=== PATIENT | female | born 1955 ===

== ENCOUNTER 2016-12-17 19:53 | Inpatient (IN) | payer OTHER, MEDICAID ==
[2016-12-17 19:57] VITALS: BMI 32.4
[2016-12-17] MEDS ORDERED: Albuterol 0.083% Inhal Sol (2.5 mg/3 mL) UD INH PRN (22:03)
[2016-12-17] MEDS: Fluticasone-Salmeterol 250-50mcg Diskus INH SCH (22:32)
[2016-12-18] MEDS: Insulin Lispro (humaLOG) 100 Units/ml Inj SC SCH ×4 (07:01→21:41)
[2016-12-18] MEDS: Pantoprazole 40 mg EC Tab PO SCH (10:01)
[2016-12-18] MEDS: Fluticasone-Salmeterol 250-50mcg Diskus INH SCH (10:03)
[2016-12-18 16:23] VITALS: RESP 20
--- NOTE | 2016-12-18 21:28 | HP ---
The patient is a 61-year-old female with history of diabetes, hypertension and also cellulitis to the right leg. The patient came to the TCU at [facility] for IV antibiotic therapy. The javon cancino has chronic recurring DVT. ALLERGIES: THE PATIENT HAS AN ALLERGY TO CLINDAMYCIN, LATEX, RUBBER, PENICILLIN AND ALSO VANCOMYCIN. SOCIAL HISTORY: The patient is , has children, lives with her . No smoking or alcohol abuse. FAMILY HISTORY: No inherited disease. REVIEW OF SYSTEM: RESPIRATORY: No shortness of breath. CARDIOVASCULAR: The patient denied any chest pain. GASTROINTESTINAL: The patient has been having multiple bowel movement, but no diarrhea. GENITOURINARY: No dysuria. NEUROLOGIC: The patient complaining of pain to the right leg. PHYSICAL EXAMINATION: GENERAL: The patient is alert and awake and oriented x 3. Complaining of some pain to the right leg sometimes. Blood pressure is 126/83, pulse is 86-110, respirations 20, temperature 98.1. NECK: Supple, no JVD. LUNGS: Clear. HEART: Regular rate and rhythm. ABDOMEN: Soft, obese, nontender. EXTREMITIES: There is some redness to the right leg and there is some mild tenderness and also it is warm. LABORATORY DATA: The patient has some tests done today. The PT is 21.3, INR is 2.5. IMPRESSION: Cellulitis of the right lower extremity, diabetes, hypertension, chronic deep venous thr ombosis. The patient did consult with Dr. Nguyen, ID. Cedric Mistry MD cc: [id number] TT: 12/18/2016 21:27:19 vt
[2016-12-19] MEDS: Insulin Lispro (humaLOG) 100 Units/ml Inj SC SCH ×4 (06:42→22:04)
[2016-12-19] MEDS: Pantoprazole 40 mg EC Tab PO SCH (09:25)
[2016-12-19] MEDS: Fluticasone-Salmeterol 250-50mcg Diskus INH SCH (09:25)
--- NOTE | 2016-12-19 12:58 | CP.PCM.CON ---
History of Present Illness - History of Present Illness History of Present Illness: 61 yo female with Hx HTN DM OA COPD DVT right leg admitted to TCU from for rx of cellulitis RLE has hx of multiple severe allergies including PCN, CLINDA, Vanco FH + DM SH- denies IVDA ROS as noted Review of Systems - Constitutional Constitutional: absent: Anorexia, Chills, Fever, Malaise - EENT Eyes: absent: As Per HPI, Blind Spots, Blurred Vision, Change in Vision, Decreased Night Vision, Diplopia, Discharge, Dry Eye, Exophthalmos, Floaters, Irritation, Itchy Eyes, Loss of Peripheral Vision, Pain, Photophobia, Requires Corrective Lenses, Sees Flashes, Spots in Vision, Tunnel Vision, Other Visual Disturbances, Loss of Vision, Other Ears: absent: As Per HPI, Decreased Hearing, Ear Discharge, Ear Pain, Tinnitus, Abnormal Hearing, Disequilibrium, Dizziness, Other Nose/Mouth/Throat: absent: As Per HPI, Epistaxis, Nasal Congestion, Nasal Discharge, Nasal Obstruction, Nasal Trauma, Nose Pain, Post Nasal Drip, Sinus Pain, Sinus Pressure, Bleeding Gums, Change in Voice, Dental Pain, Dry Mouth, Dysphagia, Halitosis, Hoarsness, Lip Swelling, Mouth Lesions, Mouth Pain, Odynophagia, Sore Throat, Throat Swelling, Tongue Swelling, Facial Pain, Neck Pain, Neck Mass, Other - Breasts Breasts: absent: As Per HPI, Change in Shape, Mass, Pain, Nipple Discharge, Nipple Inversion, Skin Changes, Swelling, Other - Cardiovascular Cardiovascular: absent: As Per HPI, Acrocyanosis, Chest Pain, Chest Pain at Rest , Chest Pain with Activity, Claudication, Diaphoresis, Dyspnea, Dyspnea on Exertion, Edema, Irregular Heart Rhythm, Pain Radiating to Arm/Neck/Jaw, Leg Edema, Leg Ulcers, Lightheadedness, Orthopnea, Palpitations, Paroxysmal Nocturnal Dyspnea, Pedal Edema, Radiating Pain, Rapid Heart Rate, Slow Heart Rate, Syncope, Other - Respiratory Respiratory: absent: As Per HPI, Cough, Dyspnea, Hemoptysis, Dyspnea on Exertion , Wheezing, Snoring, Stridor, Pain on Inspiration, Chest Congestion, Excessive Mucous Production, Change in Mucous Color, Pain with Coughing, Other - Gastrointestinal Gastrointestinal: absent: As Per HPI, Abdominal Pain, Belching, Bloating, Change in Bowel Habits, Change in Stool Character, Coffee Ground Emesis, Constipation, Cramping, Diarrhea, Dyspepsia, Dysphagia, Early Satiety, Excessive Flatus, Fecal Incontinence, Heartburn, Hematemesis, Hematochezia, Loose Stools, Melena, Nausea, Odynophagia, Temesmus, Vomiting, Other - Genitourinary Genitourinary: absent: As Per HPI, Change in Urinary Stream, Difficulty Urinating, Dysuria, Flank Pain, Hematuria, Pyuria, Nocturia, Urinary Incontinence, Urinary Frequency, Urinary Hesitance, Urinary Urgency, Voiding Freq/Small Amts, Freq UTI, Hx Renal/Bladder Calculi, Hx /Renal Surgery, Bladder Distension, Other - Reproductive: Female Reproductive:Female: absent: As Per HPI, Amenorrhea, Amenorrhea/ Control, Currently Menstual, Cycle <21 Days, Cycle >35 Days, Cycle Variable, Menses 1-7 Days, Menses >/= 8 Days, Menses Variable, Cycle > 4 Weeks Between, No Menses for 6 Months, Heavy Menses, Light Menses, Normal Menses, Spotting Between Cycles , S/P Hysterectomy, Menopausal, Post Menopausal, Premenarche, Abnormal Vaginal Bleeding, Dysmenorrhea, Dyspareunia, Genital Lesions, Genital Pruritis, Pelvic Pain, Prolapse Symptoms, Sexual Dysfunction, Vaginal Discharge, Vaginal Dryness , Vaginal Odor, Vaginal Pruritis, Other - Menstruation Menstruation: absent: As Per HPI, Amenorrhea, Amenorrhea/ Control, Currently Menstual, Cycle <21 Days, Cycle >35 Days, Cycle Variable, Menses 1-7 Days, Menses >/= 8 Days, Menses Variable, Cycle > 4 Weeks Between, No Menses for 6 Months, Heavy Menses, Light Menses, Normal Menses, Spotting Between Cycles , S/P Hysterectomy, Menopausal, Post Menopausal, Premenarche, Abnormal Vaginal Bleeding, Dysmenorrhea, Other - Musculoskeletal Musculoskeletal: As Per HPI, Arthralgias - Integumentary Integumentary: As Per HPI, Skin Pain, Wounds - Neurological Neurological: Paresthesias - Psychiatric Psychiatric: absent: As Per HPI, Abnormal Sleep Pattern, Anhedonia, Anxiety, Auditory Hallucinations, Behavioral Changes, Change in Appetite, Change in Libido, Confusion, Depression, Difficulty Concentrating, Hallucinations, Homicidal Ideation, Hopelessness, Irritability, Memory Loss, Mood Swings, Panic Attacks, Paranoia, Suicidal Ideation, Visual Hallucinations, Tactile Hallucinations, Other - Endocrine Endocrine: absent: As Per HPI, Change in Body Appearance, Change in Libido, Cold Intolorance, Deepening of Voice, Excessive Sweating, Fatigue, Flushing, Heat Intolorance, Increase in Ring/Shoe/Hat Size, Palpitations, Polydipsia, Polyphagia, Polyuria, Other - Hematologic/Lymphatic Hematologic: absent: As Per HPI, Easy Bleeding, Easy Bruising, Lymphadenopathy, Other Past Patient History - Infectious Disease Hx of Infectious Diseases: MRSA - Past Medical History & Family History Past Medical History?: Yes - Past Social History Smoking Status: Never Smoked - CARDIAC Hx Hypercholesterolemia: Yes Hx Hypertension: Yes - PULMONARY Hx Chronic Obstructive Pulmonary Disease (COPD): Yes - NEUROLOGICAL Hx Neurological Disorder: No - HEENT Hx HEENT Problems: No - RENAL Hx Chronic Kidney Disease: No - ENDOCRINE/METABOLIC Hx Diabetes Mellitus Type 2: Yes - HEMATOLOGICAL/ONCOLOGICAL Hx Anemia: Yes - INTEGUMENTARY Hx Dermatological Problems: No - MUSCULOSKELETAL/RHEUMATOLOGICAL Hx Falls: No - GASTROINTESTINAL Hx Gastrointestinal Disorders: Yes Hx Gastroesophageal Reflux: Yes - GENITOURINARY/GYNECOLOGICAL Hx Genitourinary Disorders: No - PSYCHIATRIC Hx Substance Use: No - SURGICAL HISTORY Other/Comment: Fibroids/Adhesions removal. Bladder Sx - ANESTHESIA Hx Anesthesia: Yes Hx Anesthesia Reactions: No Hx Malignant Hyperthermia: No Meds Allergies/Adverse Reactions: Allergies Allergy/AdvReac Type Severity Reaction Status Date / Time adhesive tape Allergy RASH Verified 12/17/16 19:55 clindamycin Allergy RASH Verified 12/17/16 19:55 Latex, Natural Rubber Allergy RASH Verified 12/17/16 19:55 Penicillins Allergy RASH Verified 12/17/16 19:55 shellfish derived Allergy RASH Verified 12/17/16 19:55 vancomycin Allergy RASH Verified 12/17/16 19:55 - Medications Medications: Current Medications Albuterol Sulfate (Albuterol 0.083% Inhal Seema (2.5 Mg/3 Ml) Ud) 2.5 mg INH RTID PRN PRN Reason: Shortness of Breath Atorvastatin Calcium (Lipitor) 10 mg PO HS [facility] Last Admin: 12/18/16 21:41 Dose: 10 mg Gabapentin (Neurontin) 100 mg PO BID [facility] Last Admin: 12/19/16 09:25 Dose: 100 mg Tigecycline 50 mg/ Sodium (Chloride) 100 mls @ 100 mls/hr IVPB Q12@0500,1700 [facility] Last Admin: 12/19/16 06:04 Dose: 100 mls/hr Insulin Human Lispro (Humalog) 0 units SC ACHS [facility] PRN Reason: Protocol Last Admin: 12/19/16 12:21 Dose: Not Given Losartan Potassium (Cozaar) 100 mg PO DAILY [facility] Last Admin: 12/19/16 09:25 Dose: 100 mg Metformin HCl (Glucophage) 500 mg PO ACB [facility] Last Admin: 12/19/16 07:51 Dose: 500 mg Montelukast Sodium (Singulair) 10 mg PO HS [facility] Last Admin: 12/18/16 21:41 Dose: 10 mg Pantoprazole Sodium (Protonix Ec Tab) 40 mg PO DAILY [facility] Last Admin: 12/19/16 09:25 Dose: 40 mg Fluticasone/Salmeterol (Advair Diskus 250/50) 1 puff INH DAILY [facility] Last Admin: 12/19/16 09:25 Dose: 1 puff Tramadol HCl (Ultram) 50 mg PO Q8 PRN PRN Reason: for pain 7-10 Physical Exam - Constitutional Appears: Non-toxic, Chronically Ill - Head Exam Head Exam: ATRAUMATIC, NORMAL INSPECTION, NORMOCEPHALIC - Eye Exam Eye Exam: EOMI, PERRL. absent: Scleral icterus - ENT Exam ENT Exam: Mucous Membranes Dry, Normal External Ear Exam, Normal Oropharynx - Neck Exam Neck exam: Negative for: Lymphadenopathy, Thyromegaly - Respiratory Exam Respiratory Exam: Decreased Breath Sounds, Clear to Auscultation Bilateral - Cardiovascular Exam Cardiovascular Exam: REGULAR RHYTHM, +S1, +S2 - GI/Abdominal Exam GI & Abdominal Exam: Diminished Bowel Sounds, Soft. absent: Tenderness - Rectal Exam Rectal Exam: Deferred - Exam Exam: NORMAL INSPECTION - Extremities Exam Extremities exam: Negative for: calf tenderness, pedal edema - Back Exam Back exam: absent: CVA tenderness (L), CVA tenderness (R) - Neurological Exam Neurological exam: Alert, CN II-XII Intact, Oriented x3, Reflexes Normal - Psychiatric Exam Psychiatric exam: Normal Mood - Skin Skin Exam: Dry Additional comments: warmth and redness with localized tenderness to RLE Results - Vital Signs Recent Vital Signs: Last Vital Signs Temp 97.5 F L 12/19/16 08:08 Pulse 80 12/19/16 09:25 Resp 20 12/19/16 08:08 BP 116/49 L 12/19/16 09:25 Pulse Ox 99 12/19/16 08:08 - Labs Labs: Laboratory Results - last 24 hr 12/19/16 05:30 PT 20.8 H INR 2.00 H Assessment & Plan (1) COPD (chronic obstructive pulmonary disease) Status: Acute (2) Cellulitis of right foot Status: Acute (3) Cellulitis of right leg Status: Acute (4) Chronic deep venous thrombosis Status: Acute (5) Diabetes mellitus Status: Acute (6) Hypertension Status: Acute - Assessment and Plan (Free Text) Assessment: cont iv antibiotics leg elevation PT/OT consider PO Zyvox
[2016-12-20] MEDS: Insulin Lispro (humaLOG) 100 Units/ml Inj SC SCH ×4 (07:04→22:00)
--- NOTE | 2016-12-20 08:22 | PN ---
DATE: 12/19/2016 SUBJECTIVE: Today, the patient is alert and awake, much less pain to ____, denies shortness of breat h. No dizziness. PHYSICAL EXAMINATION: VITAL SIGNS: The patient has a blood pressure of ____, pulse 80, respirations 20, temperature 97.5. NECK: Supple. No JVD. LUNGS: Clear. HEART: Regular rate and rhythm. Occasional tachycardia. ABDOMEN: Soft, nontender. No palpable mass. EXTREMITIES: Decreased tenderness in the right leg, and decreased redness, and the leg is still warm . LABS: The PT ____ is 20.8. INR is 2. PLAN: We are going to continue the Coumadin at 3 mg, and ____ are going to decrease the Accu-Chek __ __ twice a day, since the is quite stable, and continue antibiotic therapy. Cderic Mistry MD cc: [id number] TT: 12/19/2016 14:32:52 Confirmation # [id number] Dictation # [id number] jn
[2016-12-20] MEDS: Fluticasone-Salmeterol 250-50mcg Diskus INH SCH (08:53)
[2016-12-20] MEDS: Pantoprazole 40 mg EC Tab PO SCH (08:53)
--- NOTE | 2016-12-20 09:03 | RAD ---
HISTORY: Recurrent cellulitis right lower extremity. COMPARISON: No prior. TECHNIQUE: Chest PA and lateral FINDINGS: LUNGS: No active pulmonary disease. PLEURA: No significant pleural effusion identified. No pneumothorax apparent. CARDIOVASCULAR: Cardiomegaly. No evidence of acute, significant cardiovascular disease. Venous access catheter in stable, satisfactory position. OSSEOUS STRUCTURES: No significant abnormalities. VISUALIZED UPPER ABDOMEN: Normal. OTHER FINDINGS: None. IMPRESSION: No active disease.
--- NOTE | 2016-12-20 23:24 | PN ---
DATE: 12/20/2016 Today, the patient is alert and awake. Denies shortness of breath, no chest pain. Marked decrease o f pain to the right leg and no dizziness. PHYSICAL EXAMINATION: VITAL SIGNS: The patient's blood pressure is 113/78, pulse 88, respirations 20, temperature 97.9. NECK: Supple. No JVD. LUNGS: Clear. HEART: Regular rate and rhythm. ABDOMEN: Soft and nontender. No palpable mass. EXTREMITIES: There is marked decrease in swelling in the left leg and also the redness. LABORATORY DATA: The patient had blood tests done, has shown that the PT is 20.7 and INR 1.99. PLAN: So, the patient will have Coumadin today. We are going to consider therapy. . Cedric Mistry MD cc: [id number] TT: 12/20/2016 23:23:20 Confirmation # [id number] Dictation # [id number] mn
[2016-12-21] MEDS: Insulin Lispro (humaLOG) 100 Units/ml Inj SC SCH ×4 (06:47→22:23)
[2016-12-21] MEDS: Fluticasone-Salmeterol 250-50mcg Diskus INH SCH (09:32)
[2016-12-21] MEDS: Pantoprazole 40 mg EC Tab PO SCH (09:33)
--- NOTE | 2016-12-21 23:47 | PN ---
DATE: 12/21/2016 SUBJECTIVE: Today, the patient is alert and awake and denies any shortness of breath, no chest pain, no palpitations, no constipation. Complaining of some discomfort to the right lower extremity. PHYSICAL EXAMINATION: VITAL SIGNS: The patient has a blood pressure of 124/69, pulse 87, respirations 20, and temperature 98.1. NECK: Supple. No JVD. LUNGS: Clear. HEART: Regular rate and rhythm. ABDOMEN: Soft and obese. No tenderness. EXTREMITIES: There is a mass in the right lower extremity. There is some mild tenderness in t he right calf area and aspect aspect of the right leg. LABORATORY DATA: Blood tests done today. The PT is 19.2, INR 1.85. PLAN: We are going to continue the antibiotic therapy and also we are going to increase the Coumadin to mg. Cedric Mistry MD cc: [id number] TT: 12/21/2016 23:46:42 Confirmation # [id number] Dictation # [id number] mn
[2016-12-22 06:45] LABS: BASO # 0.1 K/uL (0.0-0.2); BASO % 1.3 % (0.0-2.0); EOS # 0.2 K/uL (0.0-0.7); EOS % 2.8 % (0.0-4.0); HEMATOCRIT 33.6 % (34.0-47.0); LYMPH # 2.9 K/uL (1.0-4.3); LYMPH % 42.6 % (20.0-40.0); MEAN CORPUSCULAR HEMOGLOBIN 27.2 pg (27.0-31.0); MEAN PLATELET VOLUME 8.2 fl (7.2-11.7); MONO # 0.7 K/uL (0.0-0.8); MONO % 10.7 % (0.0-10.0); NEUT # 2.9 K/uL (1.8-7.0); NEUT % 42.6 % (50.0-75.0); NRBC % 0.1 % (0.0-0.0); RED CELL DISTRIBUTION WIDTH 15.2 % (11.5-14.5); WHITE BLOOD COUNT 6.8 K/uL (4.8-10.8)
[2016-12-22 06:58] LABS: ALKALINE PHOSPHATASE 73 U/L (38-126); ALT/SGPT 27 U/L (9-52); AST/SGOT 19 U/L (14-36); BILIRUBIN,TOTAL 0.3 mg/dl (0.2-1.3); BLOOD UREA NITROGEN 24 mg/dl (7-17); CALCIUM 8.5 mg/dL (8.4-10.2); CARBON DIOXIDE 26 mmol/L (22-30); CHLORIDE 107 mmol/L (98-107); GFR AFRICAN-AMERICAN > 60; GLUCOSE,RANDOM 88 mg/dL (65-105); POTASSIUM 4.6 MMOL/L (3.6-5.0); SODIUM 141 mmol/l (132-148); TOTAL PROTEIN 5.9 G/DL (6.3-8.2)
[2016-12-22] MEDS: Insulin Lispro (humaLOG) 100 Units/ml Inj SC SCH ×3 (07:48→16:37)
[2016-12-22 08:30] VITALS: O2SAT 100
[2016-12-22] MEDS: Pantoprazole 40 mg EC Tab PO SCH (08:45)
[2016-12-22] MEDS: Fluticasone-Salmeterol 250-50mcg Diskus INH SCH (08:45)
[2016-12-22 16:59] VITALS: BP 118/66; PULSE 81; TEMP 97.2
--- NOTE | 2016-12-22 19:57 | PN ---
DATE: 12/22/2016 SUBJECTIVE: Today, the patient is alert and awake, denied any abdominal pain or any chest pain, no s hortness of breath, and patient denied any pain to the right leg today. PHYSICAL EXAMINATION: VITAL SIGNS: The patient has a blood pressure of 118/66, pulse 81, respiration 20, and temperature 9 7.2. NECK: Supple. No JVD. LUNGS: Clear. HEART: Regular rate and rhythm. ABDOMEN: Soft. Nontender. No palpable mass. EXTREMITIES: The lower extremity now has no edema. The temperature is just warm and there is some mi ld tenderness to the calf. LABORATORY DATA: The patient had some tests done. WBC 6.8, hemoglobin , hematocrit 33.6, and p latelet is 255. Chemistry should a sodium of 141, potassium , chloride 107, bicarbonate is 26, BUN 24, creatinine 1.8 and glucose 88. . ASSESSMENT AND PLAN: The patient today is receiving the last dose of antibiotic and we will consider discharging the patient today home in the afternoon. Cedric Mistry MD cc: [id number] TT: 12/22/2016 19:56:52 Confirmation # [id number] Dictation # [id number] ln
--- NOTE | 2016-12-22 21:29 | DS ---
HISTORY OF PRESENT ILLNESS: This patient is a 61-year-old female with history of hypertension and di abetes. The patient also has cellulitis of the right leg. The patient was sent to TCU at [facility] from [facility] in order to receive IV antibiotic therapy. The patient was found to morrison ve a cellulitis of the leg and was placed on antibiotic IV and patient is supposed to receive 5 more days of antibiotic therapy. So patient then was accepted at [facility] in the TCU depart [facility] for that purpose. PHYSICAL EXAMINATION: GENERAL: The patient was alert and awake, oriented x 3. EXTREMITIES: Show there is swelling of the right lower extremity that was warm and tender. So patient was put on antibiotic therapy for 5 days. The symptoms ____ the right leg was clear of re dness and tenderness. The patient was able to ambulate, which ____ . So at this point, the patient w ill be able to be discharged home and follow with me within 1 week. ____ also, the patient has a his tory of diabetes and hypertension and chronic deep venous thrombosis. The PT/INR was in the therapeu tic and was receiving Coumadin at 4 mg, so patient also will get 4 mg of Coumadin at home, plus the o ther medications. Cedric Mistry MD cc: [id number] TT: 12/22/2016 21:29:05 [email or web address]
== END 2016-12-22 18:30 | disposition home or self-care (01) | DRG 603 ==
LOC: H.TCU 19:58
PROVIDERS: ADMIT Specialist; ATTEND Specialist
PROC: F07M6FZ Therapeutic Exercise Treatment of Musculoskeletal System - Whole Body using Assistive, Adaptive, Supportive or Protective Equipment (ICD-10-PCS; principal; 2016-12-18)
PROC: F08Z4FZ Home Management Treatment using Assistive, Adaptive, Supportive or Protective Equipment (ICD-10-PCS; 2016-12-18)
DX: L03.115 Cellulitis of right lower limb (principal); I82.509 Chronic embolism and thrombosis of unspecified deep veins of unspecified lower extremity; I10 Essential (primary) hypertension; E11.9 Type 2 diabetes mellitus without complications; Z88.0 Allergy status to penicillin; Z88.3 Allergy status to other anti-infective agents; Z91.013 Allergy to seafood; J44.9 Chronic obstructive pulmonary disease, unspecified; K21.9 Gastro-esophageal reflux disease without esophagitis; E78.00 Pure hypercholesterolemia, unspecified